=== PATIENT | male | born 1950 | race Caucasian/White ===

== ENCOUNTER 2022-06-04 20:10 | Emergency (ER) | payer MEDICARE ==
[2022-06-04] MEDS ORDERED: Ondansetron 4 MG/2 ML SDV IVPUSH ONE (21:11)
[2022-06-04] MEDS ORDERED: Lactated Ringers 1,000 ML IV ONE (21:11)
[2022-06-04] MEDS ORDERED: fentaNYL 100 MCG/2 ML SDV IVPUSH ONE (21:11)
[2022-06-04] MEDS ORDERED: Sodium Chloride 0.9% 10 ML Syringe FLUSH PRN (22:10)
[2022-06-04] MEDS ORDERED: Iopamidol 755 MG/ML 50 ML Bottle IVPUSH ONE (22:10)
[2022-06-04] MEDS ORDERED: Iopamidol 755 Mg/ML 100 ML Bottle IVPUSH ONE (22:10)
[2022-06-04] MEDS ORDERED: Sodium Chloride 0.9% 100 ML IV SCH (22:15)
== END 2022-06-04 23:50 | disposition home or self-care (01) ==
LOC: JD.ED 20:10
DX: M54.9 Dorsalgia, unspecified (principal); E78.00 Pure hypercholesterolemia, unspecified; I10 Essential (primary) hypertension; E11.9 Type 2 diabetes mellitus without complications
CPT/HCPCS: 36415; 71260; 74177; 80053; 81001; 83605; 83690; 85025; 85610; 96361; 96374; 96375; 99284; J2405; J3010; J3490; J7120; Q9967

== ENCOUNTER 2025-11-02 10:52 | Emergency (ER) | payer MEDICARE ==
[2025-11-02] MEDS: Acetaminophen/HYDROcodone 325-5 MG Tab PO ONE (11:32)
== END 2025-11-02 11:50 | disposition home or self-care (01) ==
LOC: JD.ED 10:52
DX: M54.16 Radiculopathy, lumbar region (principal); I10 Essential (primary) hypertension; E78.00 Pure hypercholesterolemia, unspecified; E11.9 Type 2 diabetes mellitus without complications; Z79.84 Long term (current) use of oral hypoglycemic drugs; Z79.899 Other long term (current) drug therapy
CPT/HCPCS: 99283; A9270